=== PATIENT | female | born 1925 | race Caucasian/White ===

== ENCOUNTER → 2016-10-04 | Outpatient (CLI) | payer OTHER ==
[~2016-10-04] MED LIST: ASPCH81 PO; CETI10TA84 PO; CHOL100010 PO; HYDC25 PO; LEVO100T84 PO; LISI-725 PO; METO-217 PO; MULT-506 PO; SIMV20TA5 OR
[2016-10-04 12:23] LABS: BASO % 0.7 %; BASO ABS # 0.05 K/uL (0-0.2); COMPLETE YES; EOS % 7.9 %; HEMATOCRIT 41.1 % (37-47); IG% 0.1 %; LYMPH % 35.3 %; LYMPH ABS # 2.69 K/uL (1.2-3.4); MEAN CELL VOLUME 99.5 fL (80-100); MEAN CORPUSCULAR HEMOGLOBIN 34.4 pg (25-34); MEAN CORPUSCULAR HGB CONC 34.5 g/dl (32-36); MEAN PLATELET VOLUME 13.1 fL (7.4-10.4); MONO % 18.7 %; NEUT % 37.3 %; PLATELET COUNT 215 K/uL (130-400); RED BLOOD COUNT 4.13 M/uL (4.2-5.4); WHITE BLOOD COUNT 7.61 K/uL (4.8-10.8)
[2016-10-04 12:47] LABS: URINE APPEARANCE CLEAR (CLEAR); URINE BILIRUBIN NEG (NEG); URINE COLOR YELLOW; URINE EPITHELIAL CELL AUTO >30 /lpf (0-5); URINE NITRITE NEG (NEG); URINE PH 6.5 (4.5-7.5); URINE SPECIFIC GRAVITY 1.016 (1.000-1.030); UROBILINOGEN NEG (NEG); ZZUR CULT IF INDIC CLEAN CATCH YES
[2016-10-04 12:51] LABS: MANUAL MICROSCOPIC REQUIRED? NO; REVIEW REQ? NO
[2016-10-04 12:51] LABS: ESTIMATED AVERAGE GLUCOSE 154 mg/dl; HA1C FLAG Normal (Normal)
[2016-10-04 13:31] LABS: ALT/SGPT 37 U/L (12-78); AST/SGOT 28 U/L (15-37); BLOOD UREA NITROGEN 15 mg/dl (7-18); BUN/CREATININE RATIO 18.9 (10-20); CALCIUM 8.8 mg/dl (8.5-10.1); CARBON DIOXIDE 27 mmol/L (21-32); CHLORIDE 101 mmol/L (98-107); CREATININE 0.81 mg/dl (0.60-1.20); GLUCOSE 126 mg/dl (70-99); POTASSIUM 3.4 mmol/L (3.5-5.1); SODIUM 139 mmol/L (136-145)
[2016-10-04 13:44] LABS: ALKALINE PHOSPHATASE 57 U/L (45-117); CHOLESTEROL 140 mg/dl (0-200); CHOLESTEROL/HDL RATIO 2.2; HDL CHOLESTEROL 64 mg/dl; LDL CHOLESTEROL CALCULATED 48 mg/dl; THYROID STIMULATING HORMONE 0.383 uIu/ml (0.300-4.500); TRIGLYCERIDES 141 mg/dl (0-150); VERY LOW DENSITY LIPOPROT CALC 28 mg/dl
--- NOTE | 2016-10-08 12:29 | CODING QUERY MEDICAL NECESSITY ---
SUPPORTING DIAGNOSIS NEEDED A supporting diagnosis is required for the test/procedure performed on this patient in order for us to be reimbursed by the patient's insurance. Please provide a supporting diagnosis for the following test/procedure listed below next to the test name along with your signature. *If there is no additional diagnosis for this patient that would support the following test/procedure please document that below next to the test/procedure. Test(s)/Procedure(s) that require a supporting diagnosis: DOS 10/04 * Vitamin D DIAGNOSIS: * urine culture DIAGNOSIS: Provider Signature: Date: Thank you Felecia Murphy Health Information Management Once completed, please kindly fax back to [phone] For questions please call [phone]
== END | disposition home or self-care (01) ==
LOC: C.LABBFT 08:15
PROVIDERS: ATTEND Internal Medicine
DX: E03.9 Hypothyroidism, unspecified (principal); I10 Essential (primary) hypertension; E78.5 Hyperlipidemia, unspecified; E11.9 Type 2 diabetes mellitus without complications; E87.6 Hypokalemia; R39.9 Unspecified symptoms and signs involving the genitourinary system

== ENCOUNTER → 2016-11-01 | Outpatient (CLI) | payer OTHER ==
--- NOTE | 2016-11-01 12:22 | DIAGNOSTIC IMAGING REPORT ---
PET/CT CLINICAL HISTORY: Colorectal carcinoma. COMPARISON STUDY: PET/CT dated 01/30/2014. TECHNIQUE: One hour following the IV administration of 13.22 mCi of F-18 FDG, PET/CT examination was performed from the orbital meatal line through the bony pelvis. Noncontrast CT is performed for the purposes of anatomic correlation and attenuation correction. Note that this does not reflect a diagnostic CT examination. Images were reviewed on a separate [employer] independent workstation. Fused images were obtained. Standard uptake values reported are maximum values within the region of interest expressed in gm/mL. FINDINGS: PET FINDINGS: Head and neck: There is expected physiologic activity within the visualized brain parenchyma at the skull base and the salivary glands. Low level pharyngeal activity is likely within physiologic limits. Thorax: Evaluation of the thorax demonstrates expected physiologic myocardial activity. Abdomen and pelvis: There is expected activity within the liver, kidneys, renal collecting system, and bladder. Low-level bowel activity is likely within physical limits. Unenhanced CT images: Visualized brain parenchyma at the skull base demonstrates age-related atrophy. Postoperative changes are noted in the right ocular globe. There are bilateral ocular lens implants. The visualized paranasal sinuses and the mastoid air cells are clear. The salivary and glands are normal as imaged. The thyroid gland is atrophic versus surgically absent. No cervical lymphadenopathy is seen. There is advanced atherosclerotic calcification of the thoracic aorta which is normal in caliber. The heart is normal in size and without pericardial effusion. A lipoma is noted in the left shoulder musculature. No mediastinal, hilar, or axillary lymphadenopathy is seen. There is a left subclavian central venous infusion port. There is no airspace consolidation identified typical for pneumonia. No pleural effusion is seen. Scarring/fibrosis is present in the right upper lung. Nodular thickening is again seen along the right minor fissure on image #[id number]. These findings are unchanged from the 2014 examination. No concerning pulmonary lesion is identified. There is a moderate hiatal hernia. The liver is steatotic. No focal hepatic lesion is identified. The gallbladder is not identified and presumed surgically absent. The spleen is surgically absent and there are splenules noted in the left upper quadrant. The adrenal glands are normal. The pancreas is atrophic. The kidneys demonstrate cortical atrophy and are without hydronephrosis. Subcentimeter renal cysts are suspected. The abdominal aorta is normal in caliber noting moderate atherosclerotic calcification. There is no bowel obstruction. Moderate colonic fecal retention is observed. There is moderate sigmoid diverticulosis without CT evidence of acute diverticulitis. Postoperative change is seen in the right abdominal wall. No intraperitoneal free air or abdominal ascites is identified. There is no abdominal, pelvic, or inguinal lymphadenopathy. The bladder is normal as imaged. The uterus is surgically absent. No adnexal lesion is seen. Findings suggest pelvic floor prolapse. The skeletal structures are osteopenic. No lytic or blastic lesions are seen. Degenerative change is noted throughout the spine. IMPRESSION: 1. There is no evidence of FDG avid metastatic disease. 2. Hepatic steatosis. 3. Chronic pulmonary changes are similar to previous. 4. Colonic diverticulosis without CT evidence of acute diverticulitis. 5. Additional findings as above. Electronically signed by: Rafa Mckeon M.D. 11/01/2016 12:21 PM Dictated Date/Time: 11/01/2016 12:11 PM
== END | disposition home or self-care (01) ==
LOC: C.PET 09:40
PROVIDERS: ATTEND Internal Medicine
DX: C18.9 Malignant neoplasm of colon, unspecified (principal); K76.0 Fatty (change of) liver, not elsewhere classified

== ENCOUNTER → 2016-11-25 | Outpatient (CLI) | payer OTHER ==
--- NOTE | 2016-11-25 12:48 | MAMMOGRAPHY REPORT ---
BILATERAL DIGITAL SCREENING MAMMOGRAM WITH CAD: 11/25/2016 CLINICAL HISTORY: Routine screening. Patient has no complaints. TECHNIQUE: Current study was also evaluated with a Computer Aided Detection (CAD) system. Bilatera l CC and MLO views were obtained. COMPARISON: Comparison is made to exams dated: 11/12/2014 mammogram, 10/01/2013 mammogram, 11/25/2015 mammogram, 09/29/2012 mammogram, 09/29/2011 mammogram, and 09/28/2010 mammogram - [facility]. BREAST COMPOSITION: The tissue of both breasts is almost entirely fatty. FINDINGS: No suspicious masses, calcifications, or areas of architectural distortion are noted in e ither breast. There has been no significant interval change compared to prior exams. Scattered bilat eral benign-appearing calcifications are not significantly changed. IMPRESSION: ACR BI-RADS CATEGORY 2: BENIGN There is no mammographic evidence of malignancy. A 1 year screening mammogram is recommended. The p atient will receive written notification of the results. Approximately 10% of breast cancers are not detected with mammography. A negative mammographic repor t should not delay biopsy if a clinically suggestive mass is present. Jeanne Aguilar M.D. ah/:11/25/2016 12:22:32 Sole Painter: Nancy SIMON(Alee)(Ricardo), [facility] letter sent: Normal 1/2 BI-RADS Code: ACR BI-RADS Category 2: Benign
== END | disposition home or self-care (01) ==
LOC: C.MAMM 09:14
PROVIDERS: ATTEND Internal Medicine
DX: Z12.31 Encounter for screening mammogram for malignant neoplasm of breast (principal)

== ENCOUNTER → 2017-04-04 | Outpatient (CLI) | payer OTHER ==
[2017-04-04 12:39] LABS: BASO ABS # 0.06 K/uL (0-0.2); COMPLETE YES; EOS % 8.8 %; HEMATOCRIT 43.1 % (37-47); IG% 0.2 %; LYMPH % 35.5 %; LYMPH ABS # 2.11 K/uL (1.2-3.4); MEAN CELL VOLUME 100.2 fL (80-100); MEAN CORPUSCULAR HEMOGLOBIN 34.9 pg (25-34); MEAN CORPUSCULAR HGB CONC 34.8 g/dl (32-36); MEAN PLATELET VOLUME 13.2 fL (7.4-10.4); MONO % 18.5 %; PLATELET COUNT 230 K/uL (130-400); WHITE BLOOD COUNT 5.94 K/uL (4.8-10.8)
[2017-04-04 13:01] LABS: BLOOD UREA NITROGEN 14 mg/dl (7-18); BUN/CREATININE RATIO 15.9 (10-20); CALCIUM 9.3 mg/dl (8.5-10.1); CARBON DIOXIDE 26 mmol/L (21-32); CHLORIDE 101 mmol/L (98-107); GLUCOSE 153 mg/dl (70-99); POTASSIUM 3.5 mmol/L (3.5-5.1); SODIUM 136 mmol/L (136-145)
[2017-04-04 13:16] LABS: RATIO 27.9 mcg/mg (0-30.0)
[2017-04-04 13:27] LABS: ESTIMATED AVERAGE GLUCOSE 157 mg/dl; HA1C FLAG Normal (Normal)
== END | disposition home or self-care (01) ==
LOC: C.LABBFT 07:53
PROVIDERS: ATTEND Internal Medicine
DX: E11.9 Type 2 diabetes mellitus without complications (principal); E55.9 Vitamin D deficiency, unspecified; E03.9 Hypothyroidism, unspecified; C18.9 Malignant neoplasm of colon, unspecified; E87.6 Hypokalemia; C91.10 Chronic lymphocytic leukemia of B-cell type not having achieved remission

== ENCOUNTER → 2017-04-15 | Outpatient (CLI) | payer OTHER ==
--- NOTE | 2017-04-15 11:20 | DIAGNOSTIC IMAGING REPORT ---
AP PELVIS AND BILATERAL HIPS 5 VIEWS CLINICAL HISTORY: M25.551 pelvis and hip pain COMPARISON STUDY: No previous studies for comparison. FINDINGS: Degenerative changes are present within the lower lumbar spine. No fractures are visualized. The joint space of each hip appears well-preserved for age. There are no erosive or destructive changes. IMPRESSION: Essentially normal pelvis and hips for age. Degenerative changes within the lower lumbar spine. Electronically signed by: Amador Jones M.D. 04/15/2017 11:19 AM Dictated Date/Time: 04/15/2017 11:17 AM
== END | disposition home or self-care (01) ==
LOC: C.RAD1850 10:57
PROVIDERS: ATTEND Internal Medicine
DX: M25.551 Pain in right hip (principal); M25.552 Pain in left hip